=== PATIENT | male | born 1960 | race Caucasian/White ===

== ENCOUNTER 2022-04-03 10:31 | Emergency (ER) | payer OTHER ==
[~2022-04-03] VITALS: Ht 170.2 cm; Wt 79.8 kg
[2022-04-03] MEDS ORDERED: LIDO2SOL17 PO (13:26)
[2022-04-03 13:35] VITALS: BP 141/60
== END 2022-04-03 13:35 | disposition home or self-care (01) ==
LOC: M ED 10:31
DX: J10.1 Influenza due to other identified influenza virus with other respiratory manifestations (principal); R22.1 Localized swelling, mass and lump, neck; K13.70 Unspecified lesions of oral mucosa; K21.9 Gastro-esophageal reflux disease without esophagitis; Z87.891 Personal history of nicotine dependence

== ENCOUNTER 2024-07-28 13:49 | Emergency (ER) | payer OTHER ==
[~2024-07-28] VITALS: Ht 170.2 cm; Wt 74.8 kg
[~2024-07-28 13:49] MED LIST: LIDO15SO8 PO
[2024-07-28 14:17] LABS: KETONE, URINE AUTO RFX TRACE mg/dL (NEGATIVE); LEUKOCYTE ESTERASE UR AUTO RFX NEGATIVE (NEGATIVE); NITRITE, URINE AUTO RFX NEGATIVE (NEGATIVE); RBC, URINE AUTO RFX 0 /HPF (0-3); SQUAM EPITHELIAL CELL UR AURFX 0 /HPF (0-6); WBC, URINE AUTO RFX 0 /HPF (0-3)
[2024-07-28 17:34] LABS: BASO % 0.4 % (0.0-1.0); EOS % 0.6 % (0.0-3.0); HEMATOCRIT 47.8 % (42.0-52.0); HEMOGLOBIN 16.3 g/dl (13.5-17.5); LYMPH # 1.3 10^3/uL (1.5-5.0); LYMPH % 18.9 % (24.0-44.0); MEAN CORPUSCULAR HEMOGLOBIN 29.8 pg (27.0-33.0); MEAN CORPUSCULAR HGB CONC 34.1 g/dl (32.0-36.5); MEAN CORPUSCULAR VOLUME 87.4 fl (80.0-96.0); MONO # 0.4 10^3/uL (0.0-0.8); MONO % 6.5 % (2.0-8.0); NEUTROPHILS % 73.5 % (36.0-66.0); PLATELET COUNT, AUTOMATED 218 10^3/uL (150-450); RED BLOOD COUNT 5.47 10^6/uL (4.30-6.10); WHITE BLOOD COUNT 6.8 10^3/uL (4.0-10.0)
[2024-07-28] MEDS ORDERED: ISOVUE-370 76% 100ML VIAL As Ordered ONE (17:45)
[2024-07-28] MEDS ORDERED: HYDR1CRE30 TOP (19:22)
[2024-07-28] MEDS ORDERED: PHEN-372 PO (19:22)
[2024-07-28 19:37] VITALS: BP 158/81; TEMP 98.3; O2SAT 98
== END 2024-07-28 19:40 | disposition home or self-care (01) ==
LOC: M ED 13:49
DX: R21 Rash and other nonspecific skin eruption (principal); N30.90 Cystitis, unspecified without hematuria; Z79.899 Other long term (current) drug therapy
CPT/HCPCS: 36415; 74177; 80047; 81001; 85025; 99284; Q9967

== ENCOUNTER → 2024-08-04 | Outpatient (CLI) | payer OTHER ==
[~2024-08-04] MED LIST changes: +HYDR1CRE30 TOP; +PHEN-372 PO
== END ==
LOC: M PLALAB 08:59
PROVIDERS: ATTEND Urology
DX: Z12.5 Encounter for screening for malignant neoplasm of prostate (principal)

== ENCOUNTER → 2024-08-23 | Outpatient (REF) | payer OTHER ==
[2024-08-23 17:47] LABS: HEMATOCRIT 45.4 % (42.0-52.0); MEAN CORPUSCULAR HEMOGLOBIN 29.5 pg (27.0-33.0); MEAN CORPUSCULAR VOLUME 89.2 fl (80.0-96.0); PLATELET COUNT, AUTOMATED 276 10^3/uL (150-450); RED BLOOD COUNT 5.09 10^6/uL (4.30-6.10); WHITE BLOOD COUNT 7.7 10^3/uL (4.0-10.0)
[2024-08-23 17:48] LABS: ALBUMIN 4.3 G/DL (3.2-5.2); ALKALINE PHOSPHATASE 57 U/L (40-129); ALT/SGPT 10 U/L (7.0-40); AST/SGOT 14 U/L (<34); BILIRUBIN,TOTAL 0.9 MG/DL (0.3-1.2); BLOOD UREA NITROGEN 16 MG/DL (9-23); CALCIUM LEVEL 9.8 MG/DL (8.3-10.6); CARBON DIOXIDE LEVEL 29 MMOL/L (20-31); CHLORIDE LEVEL 105 MMOL/L (98-107); CHOLESTEROL LEVEL 253 MG/DL (<200); CHOLESTEROL RISK RATIO 4.05 (<5); CREATININE FOR GFR 0.83 MG/DL (0.70-1.30); GLOMERULAR FILTRATION RATE > 90.0 (>49); GLUCOSE, FASTING 94 MG/DL (74-106); HDL CHOLESTEROL 62.4 MG/DL (>40); LDL CHOLESTEROL 176.6 MG/DL (<100); NON-HDL-C 190.6 MG/DL; POTASSIUM SERUM 4.7 MMOL/L (3.5-5.1); SODIUM LEVEL 141 MMOL/L (136-145); TOTAL PROTEIN 7.2 G/DL (5.7-8.2); TRIGLYCERIDES LEVEL 70 MG/DL (<150)
== END ==
LOC: M SFHCCLAY 13:30
PROVIDERS: ATTEND Nurse Practitioner Family
DX: R91.1 Solitary pulmonary nodule (principal); N41.1 Chronic prostatitis; Z13.220 Encounter for screening for lipoid disorders; R21 Rash and other nonspecific skin eruption

== ENCOUNTER → 2024-12-13 | Outpatient (CLI) | payer MEDICARE, OTHER | LOC: M RAD 09:21 | PROVIDERS: ATTEND Nurse Practitioner Family | DX: R91.1 Solitary pulmonary nodule (principal) ==